=== PATIENT | female | born 1980 | race Caucasian/White ===

== ENCOUNTER 2021-09-20 10:27 | Emergency (ER) | payer OTHER, SELFPAY ==
--- NOTE | ~2021-09-20 | XR_ITS ---
EXAMINATION: XR chest 2V EXAM DATE: 09/20/2021 11:30 INDICATION: sob/cough. +covid, off quarantine since 09/17/21. TECHNIQUE: Frontal and lateral projections of the chest obtained and reviewed. There is no prior roel dy for comparison. FINDINGS: There is moderate ill-defined bilateral airspace disease, appearance is consistent with ac margarito stage COVID pneumonia. There is no pneumothorax suspected. There are no pleural effusions. Cardio mediastinal silhouette is normal. There are no osseous abnormalities identified. IMPRESSION: Moderate COVID pneumonia. Reviewed, dictated and finalized at location B. ITE CONTROL TECHNICIAN IMPRESSION: Moderate COVID pneumonia.
[2021-09-20 10:38] VITALS: BP 121/71; PULSE 95; RESP 20; TEMP 37.2; O2SAT 93
--- NOTE | 2021-09-20 11:24 | ED.URI ---
HPI - URI/Sore Throat General Chief Complaint: Upper Respiratory Infection Stated Complaint: Shortness of Breath/Dizziness Time Seen by Provider: 09/20/21 11:07 Source: patient, family and RN notes reviewed Mode of arrival: ambulatory Limitations: no limitations History of Present Illness HPI Narrative: Patient presents today complaining of shortness of breath, nonproductive cough, dizziness, chest wall pain, back pain. Patient had presumed COVID-19 for the last couple of weeks and got off her quarantine 2 days ago. She never had a positive test, but assumed based on her symptoms that she had it as she lost her taste and smell, had a severe cough, body aches, fever etc. patient states that over the last 2 days she has become very short of breath, especially with exertion. States, it is my lungs now. She has been taking Tylenol cough and cold for symptoms. MD elicited complaint: cough Related Data Home Medications Medication Instructions Recorded Confirmed lisinopril 10 mg PO DAILY 09/20/21 09/20/21 norethindrone-e.estradiol-iron [Lo 1 tablet PO DAILY 09/20/21 09/20/21 Loestrin Fe] Allergies Allergy/AdvReac Type Severity Reaction Status Date / Time Influenza Virus Vaccines Allergy Severe Anaphylaxis Verified 09/20/21 10:57 Review of Systems Review of Systems: CONSTITUTIONAL: Denies body aches, fever, chills, or sweats. EYES: Denies visual changes, redness, or discharge. ENT: Denies rhinorrhea, congestion, sore throat, or otalgia. CARDIOVASCULAR: Denies chest pain, palpitations, or edema. RESPIRATORY: + Cough, shortness of breath, chest wall pain GASTROINTESTINAL: Denies abdominal pain, nausea, vomiting, or diarrhea. GENITOURINARY: Denies dysuria or hematuria. SKIN: Denies rash, itching, or wounds. MUSCULOSKELETAL: Denies joint pain, or myalgia.+ Back pain NEUROLOGIC: Denies headache, numbness, tingling, or weakness.+ Dizziness PSYCH: Denies depression or anxiety. PMFSH Comments At time of signature, I have reviewed and agree with nursing past medical, surgical, social and family history unless otherwise noted. Please see nursing chart for further information. There is no relevant family history pertinent to the presenting complaint Exam Narrative: GENERAL: Ill-appearing, well-nourished, and in no acute distress. HEAD: Normocephalic, atraumatic. EYES: EOMI. No redness or drainage. Conjunctivae normal. ENT: Mucous membranes pink and moist. Nares clear. No rhinorrhea. TMs normal bilaterally. Throat normal. Uvula midline. NECK: Normal AROM. Supple. No lymphadenopathy. CHEST: No respiratory distress. Crackles in the bilateral lower lobes. Patient's O2 sat dropped from 95 to 90% when she went from a reclined position to sitting upright for auscultation of her lungs. States she is more comfortable when lying reclined. HEART: Regular rate and rhythm. No murmur appreciated. Normal peripheral pulses. EXTREMITIES: Normal range of motion. No edema. SKIN: Warm, dry, no rash. Capillary refill normal. Normal skin turgor. NEURO: No focal deficits. Alert and oriented x3. Gait steady. PSYCH: Normal affect. No signs of depression or anxiety. Course Vital Signs Vital signs: Vital Signs Temperature 99.0 F 09/20/21 10:38 Pulse Rate 95 09/20/21 10:38 Respiratory Rate 20 09/20/21 10:38 Blood Pressure 121/71 09/20/21 10:38 Pulse Oximetry 93 09/20/21 10:38 Temperature 99.0 F 09/20/21 10:38 Pulse Rate 95 09/20/21 10:38 Respiratory Rate 20 09/20/21 10:38 Blood Pressure 121/71 09/20/21 10:38 Pulse Oximetry 93 09/20/21 10:38 Reviewed Transfer Transfered to: [facility]) Transportation: Other (Private vehicle) Transfer rationale: COVID-19 pneumonia, shortness of breath Accepting physician: Pat MDM - URI/Sore Throat Differential Diagnosis Differential diagnosis: Likely upper respiratory infection, viral infection and other (Pneumonia) Imaging Data Radiologist's impress
[2021-09-20 11:55] VITALS: O2SAT 92
== END 2021-09-20 11:55 | disposition short-term general hospital (02) ==
PROVIDERS: Emergency Provider Nurse Practitioner; PCP Physician Assistant
DX: U07.1 COVID-19 (principal); J12.82 Pneumonia due to coronavirus disease 2019
CPT/HCPCS: 71046; 99213; G0463